=== PATIENT | female | born 1975 | race Two or more races ===

== ENCOUNTER 2016-11-29 16:12 | Emergency (ER) | payer MEDICAID ==
[~2016-11-29] VITALS: Ht 165.1 cm; Wt 68.0 kg
[~2016-11-29 16:12] MED LIST: ALPRAZOLAM0.25 MG ORAL
[2016-11-29] MEDS ORDERED: TdaP Vaccine 0.5ml Syr IM ONE (17:00)
[2016-11-29] MEDS ORDERED: Bacitracin Oint UD TOPIC ONE (17:00)
[2016-11-29] MEDS ORDERED: Lidocaine 1% MPF 10mg/ml 5ml INJ ONE (17:00)
[2016-11-29 17:08] VITALS: BP 119/80
[2016-11-29] MEDS ORDERED: BACITRACIN1 APPLIC TOPIC (18:00)
[2016-11-29] MEDS ORDERED: AUGMENTIN 500-1 EACH ORAL (18:00)
[2016-11-29 18:25] VITALS: BP 126/78
--- NOTE | 2016-11-29 18:38 | Emergency Room Report ---
History of Present Illness General Chief Complaint: Laceration Source: Patient Present Illness HPI The patient is a 41-year-old female presenting with a dog bite to the left thumb which occurred today. The patient states that her own dog bit the thumb. Patient noticed immediate pain and bleeding. Pain is described as an 8/10 dull ache it does not radiate from the thumb. Pain worse with touch. Patient denies prior injury to the thumb. The patient denies any numbness or tingling. Patient unsure of last tetanus shot. She denies any other symptoms including N, V, F, chills Allergies: Coded Allergies: No Known Allergies (Unverified , 01/21/16) Patient History Past Medical History: see triage record Pertinent Family History: none Reviewed Nursing Documentation: PMH: Agreed, PSxH: Agreed Nursing Documentation-PMH Past Medical History: No Stated History Review of Systems All Other Systems: negative except mentioned in HPI Physical Exam Vital Signs Date Time Temp Pulse Resp B/P Pulse Ox O2 Delivery O2 Flow Rate FiO2 11/29/16 16:27 98.2 68 20 128/86 100 Room Air Sp02 EP Interpretation: reviewed, normal General Appearance: no apparent distress, alert, GCS 15, non-toxic Head: normocephalic, atraumatic Eyes: bilateral eye PERRL, bilateral eye normal inspection Musculoskeletal: tender - TTP over L thumb Neurologic: alert, oriented x3, responsive, motor strength/tone normal, sensory intact, speech normal Psychiatric: judgement/insight normal, memory normal, mood/affect normal, no suicidal/homicidal ideation Skin: no rash, warm/dry, well hydrated, laceration - there are 4 1cm lacerations of the L thumb with bleeding Lymphatic: no adenopathy Medical Decision Making PA Attestation Dr. Santacruz is my supervising physician. Patient management was discussed with my supervising physician Diagnostic Impression: Primary Impression: Dog bite ER Course The patient is a 41-year-old female presenting with a dog bite to the left thumb which occurred today Ddx considered include but not limited to wound infection, fracture, tendon/ ligament injury, avulsion, nerve damage PE: vitals WNL. NAD there are 4 1cm lacerations of the L thumb with bleeding. Full AROM. SILT. Digital block was placed using 4mL of 1% lidocaine w/o epi. The wounds were irrigated with pressurized normal saline and Betadine. Bacitracin applied with sterile dressing. Patient is given tetanus vaccination The patient will be discharged home with a prescription for bacitracin and Augmentin and will followup with PMD. ER precautions are given Last Vital Signs Date Time Temp Pulse Resp B/P Pulse Ox O2 Delivery O2 Flow Rate FiO2 11/29/16 18:25 98.6 72 14 126/78 100 Room Air Status: improved Disposition: HOME, SELF-CARE Condition: Improved Scripts Amoxicillin/Potassium Clav 500-125 Tablet* (AUGMENTIN 500-125 TABLET*) 1 Each Tablet 1 TAB ORAL THREE TIMES A DAY, #21 TAB Prov: TIFFANY ROBERT 11/29/16 Bacitracin (Bacitracin Zinc) 15 Gm Oint...g. 1 APPLIC TOPIC TID, #15 GM Prov: TIFFANY ROBERT 11/29/16 Patient Instructions: Animal Bite, Nonsutured Laceration Care Additional Instructions: I discussed my findings with the patient. All questions and concerns have been answered. Treatment and medication compliance have been addressed. I advised the patient that they need to follow up with PMD in 3-5 days. Return to ED if symptoms worsen, new symptoms arise, or if needed for any reason. Patient verbalized understanding of discharge instructions. Patient will keep the wound clean and dry. TIFFANY ROBERT Nov 29, 2016 18:38
== END 2016-11-29 18:25 | disposition home or self-care (01) ==
LOC: EMR 16:35 → EDBD 16:35 → EMR 18:25
DX: S61.052A Open bite of left thumb without damage to nail, initial encounter (principal); X58.XXXA Exposure to other specified factors, initial encounter; Y93.9 Activity, unspecified; Y92.9 Unspecified place or not applicable; Z23 Encounter for immunization
CPT/HCPCS: 90471; 90715; 99284

== ENCOUNTER 2017-11-18 22:06 | Emergency (ER) | payer MEDICAID ==
[~2017-11-18] VITALS: Ht 165.1 cm; Wt 70.3 kg
[~2017-11-18 22:06] MED LIST changes: +AUGMENTIN 500-1 EACH ORAL; +BACITRACIN1 APPLIC TOPIC
[2017-11-19 00:28] VITALS: BP 114/66
[2017-11-19] MEDS ORDERED: cefTRIAXone 1 GM in NS 55 ML IVPB ONE (01:00)
[2017-11-19 01:08] LABS: BASOPHILS % (AUTO) 0.6 % (0.0-2.0); EOSINOPHILS % (AUTO) 2.1 % (0.0-3.0); HEMOGLOBIN 13.9 G/DL (12.0-16.0); LYMPHOCYTES % (AUTO) 46.9 % (20.0-45.0); MEAN CORPUSCULAR VOLUME 94 FL (80-99); MONOCYTES % (AUTO) 5.7 % (1.0-10.0); NEUTROPHILS % (AUTO) 44.7 % (45.0-75.0); PLATELET COUNT 290 K/UL (150-450); RED BLOOD COUNT 4.26 M/UL (4.20-5.40); RED CELL DISTRIBUTION WIDTH 11.5 % (11.6-14.8); WHITE BLOOD COUNT 7.3 K/UL (4.8-10.8)
[2017-11-19 01:11] LABS: APPEARANCE,URINE CLEAR; BILIRUBIN, URINE NEGATIVE (NEGATIVE); COLOR,URINE PALE YELLOW; GLUCOSE, URINE (UA) NEGATIVE (NEGATIVE); KETONES,URINE NEGATIVE (NEGATIVE); LEUKOCYTE ESTERASE ,URINE 1+ (NEGATIVE); NITRITE,URINE NEGATIVE (NEGATIVE); PH,URINE 6.5 (4.5-8.0); PROTEIN,URINE NEGATIVE (NEGATIVE); UROBILINOGEN,URINE NORMAL MG/DL (0.0-1.0)
[2017-11-19 01:13] LABS: ANION GAP 6 mmol/L (5-15); BLOOD UREA NITROGEN 12 mg/dL (7-18); CALCIUM 9.2 MG/DL (8.5-10.1); CARBON DIOXIDE 32 MMOL/L (21-32); CHLORIDE 102 MMOL/L (98-107); CREATININE 0.8 MG/DL (0.55-1.30); POTASSIUM 3.5 MMOL/L (3.5-5.1); SODIUM 140 MMOL/L (136-145)
[2017-11-19 01:18] LABS: ALANINE AMINOTRANSFERASE 46 U/L (12-78); ALBUMIN 3.9 G/DL (3.4-5.0); ALKALINE PHOSPHATASE 68 U/L (46-116); ASPARTATE AMINO TRANSFERASE 34 U/L (15-37); BILIRUBIN,TOTAL 0.4 MG/DL (0.2-1.0)
[2017-11-19 01:29] VITALS: BP 115/65
[2017-11-19] MEDS ORDERED: NORCO 5-325 TA1 EAC1 ORAL (04:07)
[2017-11-19] MEDS ORDERED: OMEPRAZOLE20 M2 ORAL (04:07)
[2017-11-19] MEDS ORDERED: KEFLEX500 MG ORAL (04:07)
[2017-11-19 04:27] VITALS: BP 115/59
[2017-11-19 04:32] VITALS: BP 115/59
--- NOTE | 2017-11-19 11:15 | Diagnostic Imaging Report ---
Indication: Abdominal pain Technique: Spiral acquisitions obtained through the abdomen and pelvis. No oral contrast utilized, per emergency room physician request No IV contrast utilized, per referring physician request.. Multiplanar reconstructions were generated. Total dose length product 796.09 mGycm. CTDIvol(s) 14.12 mGy. Dose reduction achieved using automated exposure control Comparison: 04/26/2008 Findings: Lack of enteric contrast limits assessment of the GI tract. The appendix contains some phleboliths, is otherwise unremarkable. A few prominent lymph nodes are seen in the right lower quadrant mesenteric fat. There are colonic diverticula. No evidence of diverticulitis. No small bowel distention. No free or loculated intraperitoneal air or fluid is evident. Small fat-containing umbilical hernia noted. Distal esophagus, stomach, duodenum are unremarkable Lack of IV contrast limits assessment of the solid organs. Again demonstrated is mild hepatic hypoattenuation, consistent with fatty change. This is minimally less striking than on the prior study. Some focal sparing is seen in the usual location adjacent to the gallbladder fossa. No other focal hepatic abnormality demonstrated. The gallbladder is nondistended, grossly unremarkable. No biliary ductal dilatation. The pancreas, spleen, adrenals, kidneys, ureters are unremarkable. No renal or ureteral calculi, hydronephrosis or hydroureter. No retroperitoneal or mesenteric mass or adenopathy. Evidence of interim hysterectomy. The included lung bases demonstrate posterior dependent atelectatic changes. The bones are unremarkable. Impression: No acute abnormality Fatty liver Interim hysterectomy, since prior study of 2007 Incidental finding posterior dependent pulmonary atelectatic changes This agrees with the preliminary interpretation provided overnight by [facility] teleradiology service. The CT scanner at [facility] is accredited by the [employer] and the scans are performed using protocols designed to limit radiation exposure to as low as reasonably achievable to attain images of sufficient resolution adequate for diagnostic evaluation.
--- NOTE | 2017-12-07 10:53 | Emergency Room Report ---
History of Present Illness General Chief Complaint: Abdominal Pain Source: Patient Present Illness HPI Patient is a 44-year-old female who presented after increased left-sided abdominal pain. Patient had gradual onset of symptoms over the past 3 days. Patient had intermittent episodes. Patient denied any vomiting. She reported having some left-sided abdominal cramping. She denied any fever. She had worsened pain with movement. Allergies: Coded Allergies: No Known Allergies (Unverified , 01/21/16) Patient History Last Menstrual Period: none Now: No Reviewed Nursing Documentation: PMH: Agreed, PSxH: Agreed Nursing Documentation-PMH Past Medical History: No Stated History Review of Systems All Other Systems: negative except mentioned in HPI Physical Exam Sp02 EP Interpretation: reviewed, normal General Appearance: normal inspection, well appearing, no apparent distress, alert, GCS 15, non-toxic Head: atraumatic ENT: normal ENT inspection, hearing grossly normal, normal voice Neck: normal inspection, full range of motion, supple, no bony tend Respiratory: normal inspection, lungs clear, normal breath sounds, no respiratory distress, no retraction, no wheezing Cardiovascular #1: regular rate, rhythm, no edema Gastrointestinal: normal inspection, normal bowel sounds, non tender, soft, no guarding, no hernia Genitourinary: no CVA tenderness Musculoskeletal: normal inspection, back normal, normal range of motion Neurologic: normal inspection, alert, responsive, speech normal Psychiatric: normal inspection, judgement/insight normal, mood/affect normal Skin: normal inspection, normal color, no rash Medical Decision Making Diagnostic Impression: Primary Impression: Abdominal pain ER Course Patient presented for abdominal pain. Differential diagnoses included ischemic bowel, appendicitis, perforated viscus, abdominal aortic aneurysm, inferior myocardial infarction, viral gastroenteritis Because of complexity of patient's case laboratory testing and imaging studies were ordered. CT abdomen pelvis read by radiology showed no evidence of acute intra-abdominal process. The patient was given pain medications. She is given antibiotic for urinary infection. The patient shows no definite urinary stone.The patient is advised to follow up with primary care doctor in 1-2 days. Patient is advised to return if any worsening condition or if any changes in status that are concerning. This report is dictated with [employer] senior trial attorney software which may occasionally lead to discrepancies related to use of this software. Labs Test 11/18/17 23:30 11/18/17 23:40 Urine Color Pale yellow Urine Appearance Clear Urine pH 6.5 (4.5-8.0) Urine Specific Andrews 1.010 (1.005-1.035) Urine Protein Negative (NEGATIVE) Urine Glucose (UA) Negative (NEGATIVE) Urine Ketones Negative (NEGATIVE) Urine Occult Blood 3+ (NEGATIVE) Urine Nitrite Negative (NEGATIVE) Urine Bilirubin Negative (NEGATIVE) Urine Urobilinogen Normal MG/DL (0.0-1.0) Urine Leukocyte Esterase 1+ (NEGATIVE) Urine RBC 15-20 /HPF (0 - 2) Urine WBC 2-4 /HPF (0 - 2) Urine Squamous Epithelial Cells Few /LPF (NONE/OCC) Urine Bacteria None /HPF (NONE) Urine HCG, Qualitative Negative White Blood Count 7.3 K/UL (4.8-10.8) Red Blood Count 4.26 M/UL (4.20-5.40) Hemoglobin 13.9 G/DL (12.0-16.0) Hematocrit 40.0 % (37.0-47.0) Mean Corpuscular Volume 94 FL (80-99) Mean Corpuscular Hemoglobin 32.6 PG (27.0-31.0) Mean Corpuscular Hemoglobin Concent 34.7 G/DL (32.0-36.0) Red Cell Distribution Width 11.5 % (11.6-14.8) Platelet Count 290 K/UL (150-450) Mean Platelet Volume 5.7 FL (6.5-10.1) Neutrophils (%) (Auto) 44.7 % (45.0-75.0) Lymphocytes (%) (Auto) 46.9 % (20.0-45.0) Monocytes (%) (Auto) 5.7 % (1.0-10.0) Eosinophils (%) (Auto) 2.1 % (0.0-3.0) Basophils (%) (Auto) 0.6 % (0.0-2.0) Sodium Level 140 MMOL/L (136-145) Potassium Level 3.5 MMOL/L (3.5-5.1) Chloride Level 102 MMOL/L (98-107) Carbon Dioxide Level 32 MMOL/L (21-32) Anion Gap 6 mmol/L (5-15) Blood Urea Nitrogen 12 mg/dL (7-18) Creatinine 0.8 MG/DL (0.55-1.30) Estimat Glomerular Filtration Rate > 60 mL/min (>60) Glucose Level 110 MG/DL (74-106) Calcium Level 9.2 MG/DL (8.5-10.1) Total Bilirubin 0.4 MG/DL (0.2-1.0) Aspartate Amino Transf (AST/SGOT) 34 U/L (15-37) Alanine Aminotransferase (ALT/SGPT) 46 U/L (12-78) Alkaline Phosphatase 68 U/L (46-116) Total Protein 7.9 G/DL (6.4-8.2) Albumin 3.9 G/DL (3.4-5.0) Globulin 4.0 g/dL Albumin/Globulin Ratio 1.0 (1.0-2.7) Lipase 144 U/L (73-393) CT/MRI/US Diagnostic Results CT/MRI/US Diagnostic Results : Imaging Test Ordered: Ct abd pelvis Impression Impression: No acute abnormality Fatty liver Interim hysterectomy, since prior study of 2007 Status: improved Disposition: HOME, SELF-CARE Condition: Stable Scripts Omeprazole (OMEPRAZOLE) 20 Mg Capsule.dr 20 MG ORAL DAILY, #30 CAP Prov: Glenn Tiwari 11/19/17 Hydrocodone Bit/Acetaminophen 5-325* (NORCO 5-325 TABLET*) 1 Each Tablet 1 TAB ORAL Q4H Y for For Pain, #20 TAB Prov: Glenn Tiwari 11/19/17 Cephalexin* (KEFLEX*) 500 Mg Capsule 500 MG ORAL Q6H, #28 CAP 0 Refills Prov: Glenn Tiwari 11/19/17 Patient Instructions: Abdominal Pain, Adult Glenn Tiwari Dec 07, 2017 10:53
== END 2017-11-19 04:25 | disposition home or self-care (01) ==
LOC: EMR 23:10
DX: R10.9 Unspecified abdominal pain (principal)
CPT/HCPCS: 36415; 74176; 80053; 81003; 81025; 83690; 85025; 96361; 96365; 96375; 99284; J0696; J2405; S0028

== ENCOUNTER 2020-08-15 14:15 | Emergency (ER) | payer MEDICAID ==
[~2020-08-15] VITALS: Ht 165.1 cm; Wt 81.2 kg
[~2020-08-15 14:15] MED LIST changes: +KEFLEX500 MG ORAL; +NORCO 5-325 TA1 EAC1 ORAL; +OMEPRAZOLE20 M2 ORAL
[2020-08-15 14:40] VITALS: BP 134/57
--- NOTE | 2020-08-15 14:45 | NUR ---
ED Nurse Note: Pt walked in from home c/o bilateral hip pain, increased when standing. When patient was placed in room, pt now c/o left sided non radiating chest pain x 1 week. Respirations even and unlabored on room air. Vitals stable as documented. A+Ox4, speaking in complete sentences.
[2020-08-15] MEDS ORDERED: Ketorolac 30mg Inj IV ONE (15:15)
[2020-08-15 15:25] LABS: BASOPHILS % (AUTO) 0.9 % (0.0-2.0); EOSINOPHILS % (AUTO) 1.8 % (0.0-3.0); HEMATOCRIT 40.7 % (37.0-47.0); LYMPHOCYTES % (AUTO) 37.3 % (20.0-45.0); MEAN CORPUSCULAR VOLUME 93 FL (80-99); NEUTROPHILS % (AUTO) 53.1 % (45.0-75.0); PLATELET COUNT 295 K/UL (150-450); RED BLOOD COUNT 4.37 M/UL (4.20-5.40); RED CELL DISTRIBUTION WIDTH 12.5 % (11.6-14.8); WHITE BLOOD COUNT 8.3 K/UL (4.8-10.8)
[2020-08-15 15:44] LABS: ALBUMIN 4.1 G/DL (3.4-5.0); BILIRUBIN,TOTAL 0.5 MG/DL (0.2-1.0); CALCIUM 8.7 MG/DL (8.5-10.1); CREATININE 1.1 MG/DL (0.55-1.30); POTASSIUM 3.6 MMOL/L (3.5-5.1)
[2020-08-15 16:10] VITALS: BP 130/66
[2020-08-15] MEDS ORDERED: Omnipaque-300 100ml vial INJ PRN (16:30)
--- NOTE | 2020-08-15 16:48 | NUR ---
ED Nurse Note: pt in radiology
--- NOTE | 2020-08-15 17:20 | NUR ---
ED Nurse Note: pt back from radiology. No acute distress noted.
--- NOTE | 2020-08-15 17:20 | Diagnostic Imaging Report ---
Clinical Indication: Pelvic pain. History of gastritis and hysterectomy Technique: No oral contrast utilized, per emergency room physician request IV administration nonionic contrast. Venous phase spiral acquisition obtained through the abdomen and pelvis. Multiplanar reconstructions were generated. Total dose length product 446 mGycm. CTDIvol(s) 7 mGy. Dose reduction achieved using automated exposure control Comparison: 11/19/2017 noncontrast study Findings: Lack of enteric contrast limits assessment of the GI tract. The appendix is normal. There are colonic diverticula. No evidence of acute diverticulitis. No small bowel distention. No free or loculated intraperitoneal gas or fluid is evident. The distal esophagus, stomach, duodenum are unremarkable. The liver appears somewhat decreased in size when compared to prior study, and previously demonstrated fatty changes are no longer evident. Gallbladder,, bile ducts, pancreas, spleen, adrenals, kidneys are all unremarkable. No renal or ureteral calculi, hydronephrosis, or hydroureter. A prominent vein is seen superior to the upper pole right kidney, also evident previously. The uterus has been removed. No pelvic mass or adenopathy. The included lung bases demonstrate mild posterior dependent atelectatic changes. The bones are unremarkable. Impression: Limited assessment of the GI tract, due to lack of enteric contrast administration No definite acute abnormality Previously demonstrated hepatic fatty changes have resolved in the interim Colonic diverticulosis. No evidence of diverticulitis Prior hysterectomy Other incidental findings as noted The CT scanner at [facility] is accredited by the [employer] and the scans are performed using protocols designed to limit radiation exposure to as low as reasonably achievable to attain images of sufficient resolution adequate for diagnostic evaluation.
--- NOTE | 2020-08-15 17:32 | Diagnostic Imaging Report ---
Indication: Chest pain Technique: One view of the chest Comparison: 01/21/2016 Findings: Lungs and pleural spaces are clear. Heart size is normal. Impression: No acute process
--- NOTE | 2020-08-15 17:36 | Emergency Room Report ---
History of Present Illness General Chief Complaint: Pain Source: Patient, Medical Record (Denise Sanches) Present Illness HPI 47-year-old female with history of prediabetes here complaining of low back pain and chest pain x1 week. Denies any shortness of breath, headache and dizziness. Denies any pain radiation. Reports he has history of anxiety and prediabetes, does not take any medication. Denies diarrhea, nausea vomiting at this time however reports that earlier had nausea. Denies urinary symptoms. Has not taken medication for symptom relief. Reports that the pain in the epigastric area is worse when lying down. Feels acid reflux. Feels flatulence. Denies any blood in stool. Denies tobacco smoke, drug use, alcohol intake. Denies any blood thinners. 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 COVID-19 Screening: Negative COVID-19 COVID-19 Testing Source: STRAIGHT SLICING MACHINE OPERATOR (Denise Sanches) Patient History Past Medical History: see triage record Past Surgical History: none Pertinent Family History: none Now: No Immunizations: UTD Reviewed Nursing Documentation: PMH: Agreed; PSxH: Agreed (Denise Sanches) Nursing Documentation-PMH Past Medical History: No History, Except For Hx Diabetes: Yes - PRE DM History Of Psychiatric Problem: Yes - anxiety, depression (Denise Sanches) Review of Systems All Other Systems: negative except mentioned in HPI (Denise Sanches) Physical Exam Vital Signs Date Time Temp Pulse Resp B/P (MAP) Pulse Ox O2 Delivery O2 Flow Rate FiO2 08/15/20 14:34 98.8 65 14 134/57 (82) 97 Room Air Sp02 EP Interpretation: reviewed, normal General Appearance: no apparent distress, alert, GCS 15, non-toxic Head: normocephalic, atraumatic Eyes: bilateral eye normal inspection, bilateral eye PERRL ENT: hearing grossly normal, normal pharynx, no angioedema, normal voice Neck: full range of motion, supple/symm/no masses Respiratory: chest non-tender, lungs clear, normal breath sounds, speaking full sentences Cardiovascular #1: regular rate, rhythm, no edema Gastrointestinal: normal bowel sounds, non tender, soft, no mass, no organomegaly, no peritonitis, no bruit, non-distended, no guarding, no hernia, no pulsatile mass, no rebound Rectal: deferred Genitourinary: no CVA tenderness Musculoskeletal: back normal, no calf tenderness, pelvis stable, gait/station normal Neurologic: alert, motor strength/tone normal, oriented x3, sensory intact, responsive, speech normal Psychiatric: judgement/insight normal, memory normal, mood/affect normal, no suicidal/homicidal ideation Skin: no rash Lymphatic: no adenopathy (Denise Sanches) Medical Decision Making PA Attestation All diagnoses and treatment plans were reviewed and discussed with my supervising physician Dr. David (Denise Sanches) Diagnostic Impression: Primary Impression: Diverticulosis Additional Impressions: Chest pain Gastritis ER Course 47-year-old female with history of prediabetes here complaining of low back pain and chest pain x1 week. Denies any shortness of breath, headache and dizziness. Denies any pain radiation. Reports he has history of anxiety and prediabetes, does not take any medication. Denies diarrhea, nausea vomiting at this time however reports that earlier had nausea. Denies urinary symptoms. Has not taken medication for symptom relief. Reports that the pain in the epigastric area is worse when lying down. Feels acid reflux. Feels flatulence. Denies any blood in stool. Denies tobacco smoke, drug use, alcohol intake. Denies any blood thinners. Ddx considered but are not limited to: appendicitis, cholecystis, gastritis, gastroenteritis, UTI, pyelonephritis, SBO, diverticulitis, influenza with GI manifestation, NC, pancreatitis Vital signs: are WNL, pt. is afebrile H&PE are most consistent with: Diverticulosis without diverticulitis, gastritis, chest pain ORDERS: abdominal CT, abdominal pain set, EKG, Pepcid, dicyclomine, Zofran ED INTERVENTIONS: As bolus, Zofran, Toradol DISCHARGE: At this time pt. is stable for d/c to home. Will provide printed patient care instructions, and any necessary prescriptions. Care plan and follow up instructions have been discussed with the patient prior to discharge. Patient is medication as directed, follow primary care provider, questions emergency room eating specific food. Referral to floor sweeper. CT abdomen pelvis no abnormality noted in the pelvic area secondary to muscle spasm advised patient to continue taking Motrin and Tylenol. There was also an incident reports the patient toward nursing game farm supervisor due to the bed that she was ambulating with nursing game farm supervisor, Venessa came and talked to her and will follow. Patient reported that she did not want to talk to me reported to talk to the nursing game farm supervisor instead (Denise Sanches) Chest X-Ray Diagnostic Results Chest X-Ray Diagnostic Results : Chest X-Ray Ordered: Yes # of Views/Limited/Complete: 1 View Indication: Chest Pain EP Interpretation: Yes PA Xray: Interpretation reviewed, by supervising MD, and agrees with findings. Interpretation: no consolidation, no effusion, no pneumothorax, no acute cardiopulmonary disease Impression: No acute disease Electronically Signed by: Denise FRANKLIN Scribe Text Technique: One view of the chest Comparison: 01/21/2016 Findings: Lungs and pleural spaces are clear. Heart size is normal. Impression: No acute process (Denise Sanches) Chest X-Ray Diagnostic Results : Electronically Signed by: Shell Sheehan documentation of Xray reviewed by me and is accurate, Sergei David MD (Sergei David MD) CT/MRI/US Diagnostic Results CT/MRI/US Diagnostic Results : Imaging Test Ordered: CT abdomen pelvis with contrast oral and IV Impression Diverticulosis without diverticulitis, no other abnormality notedComparison: 11/19/2017 noncontrast study Findings: Lack of enteric contrast limits assessment of the GI tract. The appendix is normal. There are colonic diverticula. No evidence of acute diverticulitis. No small bowel distention. No free or loculated intraperitoneal gas or fluid is evident. The distal esophagus, stomach, duodenum are unremarkable. The liver appears somewhat decreased in size when compared to prior study, and previously demonstrated fatty changes are no longer evident. Gallbladder,, bile ducts, pancreas, spleen, adrenals, kidneys are all unremarkable. No renal or ureteral calculi, hydronephrosis, or hydroureter. A prominent vein is seen superior to the upper pole right kidney, also evident previously. The uterus has been removed. No pelvic mass or adenopathy. The included lung bases demonstrate mild posterior dependent atelectatic changes. The bones are unremarkable. Impression: Limited assessment of the GI tract, due to lack of enteric contrast administration No definite acute abnormality Previously demonstrated hepatic fatty changes have resolved in the interim Colonic diverticulosis. No evidence of diverticulitis Prior hysterectomy (Denise Sanches) Last Vital Signs Date Time Temp Pulse Resp B/P (MAP) Pulse Ox O2 Delivery O2 Flow Rate FiO2 08/15/20 15:48 98.7 08/15/20 14:34 65 14 134/57 (82) 97 Room Air (Denise Sanches) Disposition: HOME, SELF-CARE Condition: Stable Scripts Dicyclomine Hcl* (DICYCLOMINE HCL*) 10 Mg Capsule 10 MG ORAL TID, #10 CAP Prov: Denise Sanches 08/15/20 Ondansetron (Zofran) 4 Mg Tablet 4 MG ORAL Q6H PRN for Nausea & Vomiting, #14 TAB Prov: Denise Sanches 08/15/20 Famotidine* (Pepcid 20mg tablet*) 20 Mg Tablet 20 MG ORAL DAILY for Gerd, #30 TAB 0 Refills Prov: Denise Sanches 08/15/20 Referrals: [facility]ERR[facility] (PCP) Patient Instructions: Diverticulosis, Gastritis, Adult, [id number], Nonspecific Chest Pain Additional Instructions: Take medication as directed, follow primary care provider, if worsening symptom return to the emergency room. Referral to floor sweeper may be needed due to your chest pain. Also follow-up primary doctor for H. pylori testing, avoid eating spicy acidic fluid. Denise Sanches Aug 15, 2020 17:36 Sergei David MD Aug 16, 2020 03:03
[2020-08-15] MEDS ORDERED: DICYCLOMINE HCL10 MG ORAL (17:39)
[2020-08-15] MEDS ORDERED: ZOFRAN4 M1 ORAL (17:39)
[2020-08-15] MEDS ORDERED: FAMOTIDINE20 MG ORAL (17:39)
[2020-08-15 18:35] VITALS: BP 141/80
--- NOTE | 2020-08-15 19:09 | NUR ---
ER DISCHARGE NOTE: Patient is cleared to be discharged per ERMD, pt is aox4, on room air, with stable vital signs. pt was given dc and prescription instructions, pt was able to verbalize understanding, pt id band and iv site removed without complications. pt is able to ambulate with steady gait. pt took all belongings.
--- NOTE | 2020-08-17 17:54 | Cardiology Report ---
APPROVED REPORT EKG Measurement Heart [id number] <Conclusion> Normal sinus rhythm Nonspecific ST abnormality Abnormal ECG
== END 2020-08-15 18:35 | disposition home or self-care (01) ==
LOC: EMR 15:00
DX: K57.90 Diverticulosis of intestine, part unspecified, without perforation or abscess without bleeding (principal); K29.70 Gastritis, unspecified, without bleeding; R07.9 Chest pain, unspecified
CPT/HCPCS: 36415; 71045; 74177; 80053; 80307; 83690; 84484; 85025; 93005; 96374; 96375; J1885; J2405; Q9965; S0028; Z7502; 99284